=== PATIENT | male | born 1975 | race Asian ===

== ENCOUNTER 2020-07-04 14:10 | Outpatient (RCR) | payer BC, SELFPAY ==
[2014-06-16 17:32] VITALS: BMI 28.3
== END 2020-09-04 23:59 ==
LOC: IMMUN 14:10
PROVIDERS: PCP Family Medicine; Referring Provider Family Medicine; Visit Provider Family Medicine
DX: Z23 Encounter for immunization (principal)
CPT/HCPCS: 0001A; 0002A; 91300